=== PATIENT | female | born 1995 | race Hispanic/Latino ===

== ENCOUNTER 2018-05-27 23:19 | Emergency (ER) | payer BC, SELFPAY ==
[2018-05-28 00:27] LABS: #Basophils 0.1 thou/uL (0.0-0.2); #Eosinphils 0.2 thou/uL (0.0-0.7); #Lymphocytes 2.2 thou/uL (1.20-3.40); #Monocytes 0.6 thou/uL (0.11-0.59); #Neutrophils 6.7 thou/uL (1.40-6.50); %Basophils 0.5 % (0.0-1.0); %Lymphocytes 22.4 % (21.0-51.0); %Monocytes 6.5 % (0.0-10.0); %Neutrophils 68.6 % (42.0-75.0); Mean Corpuscular HGB CONC 35.7 g/dL (32.0-36.0); Mean Corpuscular Hemoglobin 31.9 pg (27.0-31.0); Mean Corpuscular Volume 89.2 fL (78.0-98.0); Mean Platelet Volume 6.5 fL (7.4-10.4); Platelet Count 245 thou/uL (130-400); RBC Distribution Width 10.7 % (11.5-14.5); Red Blood Cell (RBC) Count 3.76 mill/uL (4.20-5.40); White Blood Cell (WBC) Count 9.8 thou/uL (4.8-10.8)
--- NOTE | 2018-05-28 08:38 | ULT ---
PRELIMINARY REPORT/[facility]/EMERGENTY AFTER-HOURS PROCEDURE US First Trimester, Transabdominal US , Transvaginal US Duplex Arterial/Venous of the Pelvis, Complete CLINICAL HISTORY: 22 years old, female; Pain and signs and symptoms; Lmp or gestational age (in weeks): 6w5d; Antepartu m complications; Bleeding; complicated by abdominal or pelvic pain; Lower; First trimester; ; Patient HX: Pelvic cramping pain, intermittent bleeding since Sunday (resolved today); Add itional info: Per er visit in [facility] today patient dx: Uti & threatened ab (low heart tone) TECHNIQUE: Real-time transabdominal and transvaginal obstetrical ultrasound of the maternal pelvis and a first t rimester with image documentation. Transvaginal imaging was used for better evaluation of t he fetus and adnexa. Real-time duplex ultrasound scan of the pelvis integrating B-mode two-dimensional vascular structure, Doppler spectral analysis and color flow Doppler imaging. COMPARISON: No relevant prior studies available. FINDINGS: Transabdominal ultrasound did not reveal a gestational sac. Therefore a transvaginal ultrasound was p erformed for further evaluation. Duplex ultrasound scan with color Doppler flow and spectral waveform analysis was also performed for evaluation of pelvic and ovarian blood flow and torsion. Gestation: Single, living intrauterine gestation. heart rate 113 beats per minute. CRL 0.62 cm, 6w3d. Yolk sac visualized. Placenta/amniotic fluid: Cannot be adequately evaluated due to the early gestational age. Uterus/cervix: Unremarkable. No myometrial mass. Right ovary: No acute findings. No mass. Normal blood flow. No evidence of torsion. Left ovary: No acute findings. No mass. Normal blood flow. No evidence of torsion. Free fluid: No free fluid. IMPRESSION: Single viable intrauterine . No acute findings. Thank you for allowing us to participate in the care of your patient. Dictated and Authenticated by: Marty Lao MD 05/28/2018 2:19 AM Central Time ([place] & [place]) OBSTETRIC SONOGRAM TRANSABDOMINAL AND TRANSVAGINAL IMAGING WITH DUPLEX EVALUATION PERFORMED ON AN EMERGENCY BASIS: Date: 05/28/18 Time: 0029 hours HISTORY: Pelvic pain. Bleeding. Early . FINDINGS: Findings agree with the preliminary report by Miguel Ángel. Single, viable intrauterine gestation is confirme d within a retroverted uterus. Measurements correlate with 6 weeks/3 days gestational size. POS: [facility]
== END 2018-05-28 00:53 | disposition home or self-care (01) ==
LOC: SCSER 23:19
DX: O20.0 Threatened abortion (principal); Z3A.01 Less than 8 weeks gestation of pregnancy
CPT/HCPCS: 76856; 84702; 85025; 86900; 86901

== ENCOUNTER 2019-01-09 21:35 | Day surgery (SDC) | payer OTHER ==
[2019-01-09 23:45] VITALS: BP 114/58; TEMP 97.7; BMI 45.5
[2019-01-10] MEDS ORDERED: Acetaminophen 500 MG TAB PO PRN (00:26)
--- NOTE | 2019-01-10 01:25 | PRG ---
DATE OF SERVICE: 01/10/2019 PRIMARY OB: Abebe Peres MD CHIEF COMPLAINT: Abdominal pain. HISTORY OF PRESENT ILLNESS: The patient is a 23-year-old female with an intrauterine at 39 weeks gestation, who is being followed by Dr. Abebe Peres. The patient presented to [facility] ER with concerns of uterine contractions then was transferred here to Labor and Delivery for further evaluation. She reports her contractions began about 2 hours apart, progressed to this evening and has since got to be about 20 minutes apart with an intrauterine at 39 weeks' gestation, who is presenting with abdominal pain. The patient reports she presented to the [facility] ER with contractions about every 30 minutes apart. She reports that began earlier in the evening around 5 o'clock at which time were about 2 hours apart and is now she believes about 20 minutes apart. The patient denies any leakage of fluid. She has had bloody show, but denies other vaginal bleeding. She denies fever or fall. She does report headaches that she has been experiencing since this morning and attributes this to the fact she is not sleeping well. She has not taken any medications for it. She denies nausea or vomiting. Does report some shortness of breath with baby positioning. Denies chest pain. Denies diarrhea. Reports some constipation. Denies new rash, hip problems, knee problems, muscle weakness. The patient reports she was seen yesterday by her doctor, who reports she is about 2.5 cm dilated. PAST MEDICAL HISTORY: Negative. PAST SURGICAL HISTORY: Negative. ALLERGIES: NO KNOWN DRUG ALLERGIES. MEDICATIONS: vitamins. SOCIAL HISTORY: Denies drug, alcohol, or tobacco use. OB LABS: Unavailable. REVIEW OF SYSTEMS: Per HPI. PHYSICAL EXAMINATION: VITAL SIGNS: Blood pressure is 115/57, heart rate of 88, respiratory rate of 20, and temperature 97.7. GENERAL: She appears to be in no acute distress. She is alert, oriented, cooperative, and pleasant to interact with. HEAD: Normocephalic and atraumatic. LUNGS: Clear to auscultation bilaterally. HEART: Has regular rate and rhythm. ABDOMEN: Gravid and soft, nontender. EXTREMITIES: Nontender. Nonedematous. : Exam, per nursing staff, she is 3, 50, and -2 station. heart tracing performed for abdominal pain and . Fetus is noted to have a baseline in the 120s with moderate long-term variability, positive 15 x 15 accelerations, no decelerations. Tocometer has difficulty taking up the contractions but they appear to be having some contractions about every 2 to 3 minutes, so felt about every 20 minutes. ASSESSMENT AND PLAN: The patient is a 23-year-old female with an intrauterine at 39 weeks and 0 days. She is likely in latent labor. She has been given the option to wait couple of hours and then be rechecked. The patient has declined and is asking if she could go home so that she can rest given the hour of the night. The patient does live in [place], which is only about 15 to 20 minutes here from this hospital. We are giving her Tylenol for her headaches, which she will be taking prior to discharging home. The patient has been given term labor precautions. Job ID: [id number]
== END 2019-01-10 00:50 | disposition home or self-care (01) ==
LOC: SCSER 21:35 → SDC/OP 22:53 → L&D/OP 01-10 00:50
PROVIDERS: ATTEND Family Medicine
DX: O47.1 False labor at or after 37 completed weeks of gestation (principal); Z3A.39 39 weeks gestation of pregnancy; Z79.899 Other long term (current) drug therapy
CPT/HCPCS: 99283; 99284

== ENCOUNTER 2019-01-12 10:42 | Inpatient (IN) | payer BC, MEDICAID, OTHER, SELFPAY ==
[2019-01-13] MEDS ORDERED: Lidocaine 2% MPF 10 ML AMP (For Epidural Use) ONE (11:11)
[2019-01-13] MEDS ORDERED: Bupivacaine/Epinephrine 0.25% 30 ML VIAL ONE (11:11)
[2019-01-13] MEDS ORDERED: Lidocaine 1% (PF) 30 ML VIAL SC PRN (23:37)
[2019-01-13] MEDS ORDERED: Butorphanol Tartrate 1 MG/ML VIAL SLOW IVP PRN (23:37)
[2019-01-13] MEDS ORDERED: Methylergonovine 0.2 MG/ML VIAL IM PRN (23:37)
[2019-01-13] MEDS ORDERED: Misoprostol 200 MCG TAB PR PRN (23:37)
[2019-01-13] MEDS ORDERED: Diphenoxylate HCl/Atropine Tablet PO PRN (23:37)
[2019-01-13] MEDS ORDERED: Carboprost 250 MCG/ML AMP IM PRN (23:37)
[2019-01-13] MEDS ORDERED: NS / Oxytocin 40 units/1000ml 1,000 ML IV PRN (23:37)
[2019-01-13] MEDS ORDERED: HYDROcodone/Acetaminophen 5/325 mg Tablet PO PRN (23:37)
[2019-01-13] MEDS ORDERED: Ondansetron PF 4 MG/2 ML Vial IVP PRN (23:37)
[2019-01-13] MEDS ORDERED: NS w/ Oxytocin 10 units 500 ML IV SCH ×2 (23:37)
[2019-01-13] MEDS ORDERED: Ibuprofen 800 MG TAB PO PRN (23:37)
[2019-01-13] MEDS: Lactated Ringer's 1,000 ML IV SCH (23:45)
[2019-01-14 00:09] VITALS: BMI 42.7
[2019-01-14 00:09] LABS: Hemoglobin 11.5 g/dL (12.0-16.0); Mean Corpuscular Hemoglobin 30.8 pg (27.0-31.0); Mean Corpuscular Volume 93.3 fL (78.0-98.0); Mean Platelet Volume 6.8 fL (7.4-10.4); Platelet Count 328 thou/uL (130-400); Red Blood Cell (RBC) Count 3.74 mill/uL (4.20-5.40); White Blood Cell (WBC) Count 8.5 thou/uL (4.8-10.8)
[2019-01-14 00:47] LABS: HBSAg Index 0.23 S/CO (0-0.99); Hep B Surf Ag Non-Reactive S/CO (NonReactive)
[2019-01-14 00:48] LABS: Syphilis Antibody Nonreactive (Nonreactive); Syphilis Antibody Index 0.04 S/CO (<1.00 Non-Reactive)
[2019-01-14] MEDS: Lactated Ringer's 1,000 ML IV SCH ×4 (04:12→12:03)
[2019-01-14] MEDS ORDERED: Fentanyl 4 mcg/Bup 0.1% Cadd 100 ML ONE ×2 (08:20→15:55)
[2019-01-14] MEDS ORDERED: Lidocaine 1.5%/Epinephrine 1:200,000 5 ML AMPUL IJ ONE (08:21)
[2019-01-14] MEDS ORDERED: Promethazine HCl 25 MG/ML VIAL IM PRN ×2 (09:03→19:19)
[2019-01-14] MEDS ORDERED: Lactated Ringer's 500 ML IV PRN (09:03)
[2019-01-14] MEDS ORDERED: ePHEDrine/0.9% NaCl/PF SYRINGE 50 mg/10 ml SLOW IVP PRN (09:03)
[2019-01-14] MEDS ORDERED: Eucerin (Mineral Oil/Petrolatum,White) 30 gm Jar TOP PRN ×2 (09:03→19:19)
[2019-01-14] MEDS ORDERED: Ondansetron PF 4 MG/2 ML Vial IVP PRN ×3 (09:03→21:07)
[2019-01-14] MEDS ORDERED: diphenhydrAMINE 50 MG/ML VIAL IVP PRN ×2 (09:03→19:19)
[2019-01-14] MEDS ORDERED: Naloxone HCl 0.4 mg/ml Vial IVP PRN ×4 (09:03→19:19)
[2019-01-14] MEDS ORDERED: Acetaminophen 325 MG TAB PO PRN (09:03)
[2019-01-14] MEDS ORDERED: Communication Order-Pharmacy FS SCH ×2 (09:15→19:30)
[2019-01-14] MEDS ORDERED: Fentanyl 4 mcg/Bupivacaine 0.1% Cassette 100 ML EPIDURAL SCH (09:15)
[2019-01-14] MEDS ORDERED: diphenhydrAMINE 50 MG/ML VIAL ONE (11:56)
[2019-01-14] MEDS ORDERED: Ketorolac Tromethamine 30 MG/ML VIAL ONE (11:56)
[2019-01-14] MEDS ORDERED: Dexamethasone 20 MG/5 ML VIAL ONE (11:56)
[2019-01-14] MEDS ORDERED: Ondansetron PF 4 MG/2 ML Vial ONE (11:56)
[2019-01-14] MEDS ORDERED: CEFAZOLIN 3 GM in Premix Bag 1 BAG IVPB SCH (17:15)
[2019-01-14] MEDS ORDERED: CEFAZOLIN 3 GM in Sodium Chloride 0.9% 100 ML IVPB SCH (17:30)
[2019-01-14] MEDS: Bicitra 30 ML UDCUP PO SCH ×2 (18:23→18:25)
[2019-01-14] MEDS ORDERED: Meperidine HCl/PF 25 MG/ML VIAL SLOW IVP PRN (19:19)
[2019-01-14] MEDS ORDERED: Promethazine HCl 25 MG SUPP PR PRN (19:19)
[2019-01-14] MEDS ORDERED: HYDROmorphone 2 MG/ML VIAL SLOW IVP PRN (19:19)
[2019-01-14] MEDS ORDERED: Ondansetron HCl/PF 4 MG/2 ML Vial IVP PRN (19:19)
[2019-01-14] MEDS ORDERED: Naloxone HCl 0.4 mg/ml Vial IV PRN (19:19)
[2019-01-14] MEDS ORDERED: L&D-Morphine 4 MG/ML VIAL SLOW IVP PRN (19:19)
[2019-01-14] MEDS ORDERED: Ketorolac Tromethamine 30 MG/ML VIAL IVP PRN (19:19)
[2019-01-14] MEDS ORDERED: Ketorolac Tromethamine 30 MG/ML VIAL IVP SCH (19:30)
[2019-01-14] MEDS ORDERED: Bisacodyl 10 MG SUPP PR PRN (21:07)
[2019-01-14] MEDS ORDERED: diphenhydrAMINE 25 MG CAP PO PRN (21:07)
[2019-01-14] MEDS ORDERED: Lactated Ringer's 1,000 ML IV SCH (21:07)
[2019-01-14] MEDS ORDERED: NS / Oxytocin 40 units/1000ml 1,000 ML IV SCH (21:07)
[2019-01-14] MEDS ORDERED: Meperidine HCl/PF 25 MG/ML VIAL IM PRN (21:07)
[2019-01-14] MEDS ORDERED: Lanolin Ointment 7 GM TUBE TOP PRN (21:07)
[2019-01-14] MEDS: Docusate Calcium (SURFAK) 240 MG CAP PO SCH (22:15)
--- NOTE | 2019-01-15 00:21 | PDOC.PP ---
Post Progress Note Post Day #: POD#1 Subjective: Resting comfortably. No c/o. PO intake tolerated: yes Flatus: no Ambulation: no Vital Signs (12 hours) Temp Pulse Resp BP Pulse Ox 01/14/19 22:15 98.9 F 75 16 125/57 L 99 Weight Weight 120.202 kg - Physical Examination General: NAD Respiratory: non-labored breathing Abdominal: no distention Skin: CS incision dry & intact Psychiatric: normal affect Result Diagrams: 01/13/19 23:53 Additional Labs: Post Labs Blood Type O POSITIVE 01/13/19 23:53 Hep Bs Antigen Non-Reactive S/CO (NonReactive) 01/13/19 23:53 - Assessment/Plan Doing well s/p C/S. Routine postop care.
[2019-01-15] MEDS ORDERED: Sodium Chloride 0.9% 10 ML ONE ×3 (01:18→09:35)
[2019-01-15] MEDS: CEFAZOLIN 2 GM in Premix Bag 1 BAG IVPB SCH ×2 (01:35→09:36)
--- NOTE | 2019-01-15 05:45 | DN ---
DATE OF PROCEDURE: 01/14/2019 RESIDENT SURGEON: Emory Dela Cruz, PGY-2 PROCEDURE: Primary low transverse section. PREOPERATIVE DIAGNOSES: 1. Term intrauterine . 2. Arrest of labor. POSTOPERATIVE DIAGNOSIS: Term intrauterine . ANESTHESIA: Epidural. INDICATIONS: The patient is a 23-year-old G1, P0 female at 39 and 3 weeks gestation, who presented for primary after arrest of labor. DESCRIPTION OF PROCEDURE: After risks, benefits, and alternatives were explained to the patient, she gave informed consent. Preoperative antibiotics included cefazolin 2 g IV. The patient was taken to operating room. The patient already had epidural anesthesia initiated. She was placed in the supine position with a left tilt and prepped and draped in the usual sterile fashion. A Pfannenstiel incision was made with a scalpel and carried down to the level of the fascia, which was sharply nicked. The fascial cut was extended bilaterally with Whelan scissors. The inferior and superior fascial edges were elevated with Shanda clamps, and underlying rectus muscles were sharply and bluntly dissected free. Recti were divided digitally and retracted manually. The peritoneum was entered bluntly and retracted with an Robert O retractor. A bladder flap was created with Metzenbaum scissors. A low transverse score was made with a scalpel and the uterus was entered in the midline with the scalpel. Clear fluid was seen. Hysterotomy was extended manually. was noted to be vertex and easily delivered by fundal pressure. Mouth and nares were bulb suctioned. Cord was clamped and cut and grossly normal male infant was handed to waiting nurse. Cord blood was obtained. Placenta was manually extracted, found to be intact with 3-vessel cord and discarded. Uterus was externalized and the endometrium was curetted with a dry lap. The bladder blade was replaced and the uterus was closed with a running locking 0 Vicryl, followed by a couple of figure of eight stitches with 0 Vicryl to imbricate. Following this, hemostasis was noted. The Seprafilm was applied to the incision site and uterus. The abdomen was irrigated with saline and suctioned free of clots. Uterus was internalized and the hysterotomy was again noted to be hemostatic. The peritoneum was closed with 3-0 Vicryl in a running fashion. The fascia was then closed with a running nonlocking 0 PDS suture. Subcu tissue was irrigated and any bleeders were made hemostatic with Bovie cautery. Subcu tissue was then approximated with 3-0 Vicryl with three interrupted stitches, and the skin was approximated with jelly and pressure dressing was placed. All counts were correct. The patient tolerated the procedure well and was taken to the recovery room in stable condition. QBL was pending at the time of this dictation. COMPLICATIONS: None. SPECIMENS: Cord blood sent to lab for blood type. FINDINGS: Grossly normal with Apgars of 8 and 10 at one and five minutes respectively. Grossly normal placenta with 3-vessel cord discarded. DRAINS: Molina to gravity draining clear urine. Job ID: [id number]
[2019-01-15 06:59] LABS: Hemoglobin 10.1 g/dL (12.0-16.0); Mean Corpuscular HGB CONC 34.1 g/dL (32.0-36.0); Mean Corpuscular Volume 93.9 fL (78.0-98.0); Mean Platelet Volume 6.7 fL (7.4-10.4); Platelet Count 297 thou/uL (130-400); RBC Distribution Width 11.9 % (11.5-14.5); Red Blood Cell (RBC) Count 3.15 mill/uL (4.20-5.40); White Blood Cell (WBC) Count 12.8 thou/uL (4.8-10.8)
[2019-01-15] MEDS: Simethicone Chewable 80 MG TAB PO PRN (07:38)
[2019-01-15] MEDS: Prenatal Vitamin 1 TAB PO SCH (08:51)
[2019-01-15] MEDS: Docusate Calcium (SURFAK) 240 MG CAP PO SCH ×2 (08:51→20:29)
[2019-01-15] MEDS: HYDROcodone/Acetaminophen 5/325 mg Tablet PO PRN ×4 (08:51→20:28)
[2019-01-15] MEDS: Ferrous Sulfate 325 MG TAB PO SCH (08:51)
[2019-01-15] MEDS: Ibuprofen 800 MG TAB PO SCH ×2 (14:13→20:29)
[2019-01-15] MEDS ORDERED: CEFAZOLIN 2 GM in Premix Bag 1 BAG IVPB SCH (18:00)
[2019-01-16] MEDS: Ferrous Sulfate 325 MG TAB PO SCH ×2 (00:34→11:51)
[2019-01-16] MEDS: HYDROcodone/Acetaminophen 5/325 mg Tablet PO PRN ×5 (00:37→21:38)
[2019-01-16] MEDS: Simethicone Chewable 80 MG TAB PO PRN ×3 (01:00→21:39)
--- NOTE | 2019-01-16 01:44 | PDOC.PP ---
Post Progress Note Post Day #: 2 (at 1900 today, will be 48 hrs) Subjective: Doing well. Has prevena in use PO intake tolerated: yes Flatus: yes Ambulation: yes Vital Signs (12 hours) Temp Pulse Resp BP Pulse Ox 01/15/19 20:00 97.7 F 85 18 112/57 L 99 01/15/19 16:50 98.0 F 80 18 110/51 L Weight Weight 265 lb Vitals over last 24 hours reviewed - Physical Examination General: NAD Cardiovascular: no m/r/g, RRR Respiratory: clear to auscultation bilaterally Abdominal: + bowel sounds, lochia, no distention, appropriately TTP Extremities: negative homans (B) Skin: CS incision dry & intact (NOTE: PREVENA wound vac still inplace with original dressing...kept in use. Per op note, jelly in use) Neurological: no gross focal deficits Psychiatric: A&Ox3, normal affect Result Diagrams: 01/15/19 06:35 Additional Labs: Post Labs Blood Type O POSITIVE 01/13/19 23:53 Hep Bs Antigen Non-Reactive S/CO (NonReactive) 01/13/19 23:53 (1) Single delivery by section Code(s): O82 - ENCOUNTER FOR DELIVERY WITHOUT INDICATION Status: Acute - Assessment/Plan POD 2 today. Discussed with her continued observation until POD3 as she has a labor course complicated by CS. Passing flatus. prevena in use. We will: continue in-house observation today (POD2). Prob [facility] home tomorrow Sunday, POD3. Home with prevena wound vac and follow up sunday with provider. Routine care today, POD2.
[2019-01-16] MEDS: Ibuprofen 800 MG TAB PO SCH ×3 (06:42→21:38)
[2019-01-16] MEDS: Docusate Calcium (SURFAK) 240 MG CAP PO SCH ×2 (08:54→21:38)
[2019-01-16] MEDS: Prenatal Vitamin 1 TAB PO SCH (08:54)
[2019-01-17] MEDS: Ferrous Sulfate 325 MG TAB PO SCH ×2 (01:52→08:56)
[2019-01-17] MEDS: Ibuprofen 800 MG TAB PO SCH ×2 (06:08→13:30)
--- NOTE | 2019-01-17 06:18 | PDOC.PP ---
Post Progress Note Post Day #: POD#3 Subjective: Doing well. Tolerating regular diet. PO intake tolerated: yes Flatus: yes Ambulation: yes Vital Signs (12 hours) Temp Pulse Resp BP Pulse Ox 01/16/19 20:25 97.8 F 88 20 128/68 96 Weight Weight 120.202 kg - Physical Examination General: NAD Respiratory: non-labored breathing Abdominal: no distention Skin: CS incision dry & intact Psychiatric: normal affect Result Diagrams: 01/15/19 06:35 Additional Labs: Post Labs Blood Type O POSITIVE 01/13/19 23:53 Hep Bs Antigen Non-Reactive S/CO (NonReactive) 01/13/19 23:53 - Assessment/Plan DC home Precautions RTC next week for wound vac and staple removal
[2019-01-17 08:09] VITALS: BP 100/51; TEMP 98.1
[2019-01-17] MEDS: Prenatal Vitamin 1 TAB PO SCH (08:43)
[2019-01-17] MEDS: Docusate Calcium (SURFAK) 240 MG CAP PO SCH (08:43)
[2019-01-17] MEDS: HYDROcodone/Acetaminophen 5/325 mg Tablet PO PRN ×2 (08:44→13:30)
[2019-01-17] MEDS: Simethicone Chewable 80 MG TAB PO PRN (10:37)
== END 2019-01-17 15:50 | disposition home or self-care (01) | DRG 788 ==
LOC: L&D 01-13 23:09 → 3SW 01-14 23:03
PROVIDERS: ADMIT Family Medicine; ATTEND Family Medicine
PROC: 10D00Z1 Extraction of Products of Conception, Low, Open Approach (ICD-10-PCS; principal; 2019-01-14)
DX: O99.214 Obesity complicating childbirth (principal); O62.1 Secondary uterine inertia; Z3A.39 39 weeks gestation of pregnancy; Z37.0 Single live birth; E66.01 Morbid (severe) obesity due to excess calories
CPT/HCPCS: 36415; 51702; 85027; 86780; 86850; 86900; 86901; 87340; J0690; J1100; J1200; J1885; J2001; J2405; J3490; J7050

== ENCOUNTER 2020-07-14 08:25 | Outpatient (CLI) | payer OTHER ==
--- NOTE | 2020-07-14 09:02 | ULT ---
OB ULTRASOUND: HISTORY: anatomy FINDINGS: A single live intrauterine gestation is seen with measurements corresponding to an estimated gestatio nal age of 21 weeks 5 daysand RODRICK at 11/19/2020. The estimated weight measures 416 g or 15 ounces (39% by Hadlock criteria). biometry: BPD: 5.31 cm, 22 weeks 1 day HC: 19.69 cm, 22 weeks 0 days AC: 15.35 cm, 20 weeks 4 days FL: 3.77 cm, 22 weeks 1 day heart rate: 133bpm Placenta: Anterior Placenta previa: No PINKY: 14.5cm Cervical length: 4.6cm A three-vessel cord, cord insertion, kidneys, urinary bladder, stomach, 4 chambered heart, late ral ventricles, cerebellum, spine, lips/nose, upper and lower extremities are visualized. No definite anomalies are seen. IMPRESSION: Single live intrauterine gestation of 21 weeks 5 daysestimated gestational age and RODRICK at 11/19/2020
== END 2020-07-14 08:26 | disposition home or self-care (01) ==
LOC: BICULT 08:25
PROVIDERS: ATTEND Family Medicine
DX: O09.92 Supervision of high risk pregnancy, unspecified, second trimester (principal); Z3A.21 21 weeks gestation of pregnancy
CPT/HCPCS: 76805

== ENCOUNTER 2020-11-12 08:03 | Outpatient (CLI) | payer OTHER ==
[2020-11-12 21:23] LABS: SARS-CoV-2 MS2 Positive; SARS-CoV-2 N Gene Negative; SARS-CoV-2 S Gene Negative; SARS-CoV-2 by NAA Not Detected (NotDetected); SARS-CoV-2 orf1ab Negative
== END 2020-11-12 08:04 | disposition home or self-care (01) ==
LOC: LABBT 08:03
PROVIDERS: ATTEND Family Medicine
DX: Z01.812 Encounter for preprocedural laboratory examination (principal); Z20.822 Contact with and (suspected) exposure to COVID-19
CPT/HCPCS: 87635; U0003

== ENCOUNTER → 2020-11-19 15:25 | Inpatient (IN) | payer MEDICAID, OTHER, SELFPAY ==
[2020-11-16 10:53] VITALS: BMI 54.8
[2020-11-16 10:55] LABS: Hemoglobin 12.1 g/dL (12.0-16.0); Mean Corpuscular HGB CONC 33.1 g/dL (32.0-36.0); Mean Corpuscular Hemoglobin 30.3 pg (27.0-31.0); Mean Corpuscular Volume 91.7 fL (78.0-98.0); Mean Platelet Volume 7.1 fL (7.4-10.4); Platelet Count 273 thou/uL (130-400)
[2020-11-16 11:39] LABS: HBSAg Index 0.22 S/CO (0-0.99); Hep B Surf Ag Non-Reactive S/CO (NonReactive)
[2020-11-16 11:40] LABS: Syphilis Antibody Nonreactive (Nonreactive); Syphilis Antibody Index 0.03 S/CO (<1.00 Non-Reactive)
[2020-11-16] MEDS: Lactated Ringer's 1,000 ML IV SCH (11:58)
[2020-11-16] MEDS: Tranexamic Acid 1,000 MG in Sodium Chloride 0.9% 100 ML IVPB SCH ×3 (15:35→18:39)
[2020-11-16] MEDS: Carboprost 250 MCG/ML AMP IM SCH ×2 (15:36→15:51)
[2020-11-16] MEDS: metroNIDAZOLE 500 MG in Premix Bag 1 BAG IVPB SCH (18:07)
[2020-11-16] MEDS: Ketorolac Tromethamine 30 MG/ML VIAL IVP SCH ×2 (18:07→23:51)
--- NOTE | 2020-11-16 19:31 | OP ---
DATE OF PROCEDURE: 11/16/2020 RESIDENT SURGEON: Ronda Paul MD. PROCEDURE PERFORMED: Repeat low-transverse section with low vacuum extraction PREOPERATIVE DIAGNOSES: 1. Term intrauterine . 2. Previous section. 3. Obesity. POSTOPERATIVE DIAGNOSES: 1. Term intrauterine , delivered. 2. Previous section. 3. Obesity. ANESTHESIA: Spinal. QBL: 265 mL SPECIMENS: Cord blood obtained for blood type. FINDINGS: Placenta intact with 3-vessel cord noted, discarded. A viable male with Apgars of 8 and 9 at one and five minutes of life respectively. DRAINS: 1. Molina to gravity draining clear urine. 2. Wound VAC over Pfannenstiel incision INDICATIONS: This 25-year-old G2, P1-0-0-1 at 39.2 weeks' gestation, presented to Labor and Delivery for scheduled repeat low-transverse section. PROCEDURE IN DETAIL: After risks, benefits, and alternatives were explained to the patient, she gave informed consent. Preoperative antibiotics included cefazolin 3 g IV. The patient was taken to the operating room where spinal anesthesia was initiated. She was placed in the supine position with a left tilt. She was prepped and draped in the usual sterile fashion. A Pfannenstiel incision was made with a scalpel and carried down to the level of the fascia which was sharply nicked. The fascial cut was extended bilaterally with Whelan scissors. The superior and inferior edges of the fascia were elevated with Shanda clamps and the rectus muscles were sharply and bluntly dissected free. The rectus muscles were divided digitally and retracted manually. The peritoneum was entered bluntly and retracted manually. Bladder blade was placed. A low-transverse uterine incision was made using a scalpel. The uterus was entered bluntly in the midline. An Allis was used for amniotomy and clear fluid was seen. The hysterotomy was extended manually. The infant was noted to be vertex and was difficult to deliver. A vacuum was placed on the infant's head with one pop- off. The was delivered with vacuum assistance and fundal pressure. The was stimulated and suctioned. Cord was clamped and cut. The was taken to the team at the [facility]. The placenta was delivered manually. The uterus was exteriorized, and the endometrium was curetted with a dry lap x1. The edges of the hysterotomy were clamped with ring forceps. The hysterotomy was closed using 1- Monocryl in a running locking fashion. There was some bleeding towards the lateral edges of the hysterotomy. At the left corner of the hysterotomy, a [id number] imbricating stitch was placed using 1-Monocryl. At the right corner of the hysterotomy, 2 [id number] imbricating sutures were placed using 0-Vicryl; and the hysterotomy was noted to be hemostatic. Seprafilm was placed over the hysterotomy in the anterior portion of the uterus. The abdomen was irrigated and suctioned free of clots anteriorly and posteriorly. The uterus was returned to the abdomen. The hysterotomy was again noted to be hemostatic. The peritoneum was closed using 3-0 Vicryl in a running nonlocking fashion. The fascia was closed using 1-PDS in a running nonlocking fashion. The subcutaneous space was closed with 3 interrupted sutures using 3-0 Vicryl. The skin was closed with jelly, and a wound VAC was placed. The patient tolerated the procedure well. All counts were correct. The patient went to recovery for routine care. Postoperative antibiotics of cefazolin were ordered. Job ID: [id number] [facility]
[2020-11-16] MEDS: Docusate Calcium (SURFAK) 240 MG CAP PO SCH (21:35)
[2020-11-16] MEDS: Ferrous Sulfate 325 MG TAB PO SCH (21:35)
[2020-11-16] MEDS: CEFAZOLIN 2 GM in Premix Bag 1 BAG IVPB SCH (21:54)
[2020-11-17] MEDS: metroNIDAZOLE 500 MG in Premix Bag 1 BAG IVPB SCH ×3 (02:20→18:12)
[2020-11-17] MEDS: CEFAZOLIN 2 GM in Premix Bag 1 BAG IVPB SCH ×3 (05:01→20:08)
[2020-11-17] MEDS: Ketorolac Tromethamine 30 MG/ML VIAL IVP SCH (05:26)
[2020-11-17 07:33] LABS: Hemoglobin 9.5 g/dL (12.0-16.0); Mean Corpuscular HGB CONC 33.5 g/dL (32.0-36.0); Mean Corpuscular Hemoglobin 30.8 pg (27.0-31.0); Mean Corpuscular Volume 91.8 fL (78.0-98.0); Mean Platelet Volume 6.8 fL (7.4-10.4); Platelet Count 235 thou/uL (130-400); Red Blood Cell (RBC) Count 3.07 mill/uL (4.20-5.40); White Blood Cell (WBC) Count 9.4 thou/uL (4.8-10.8)
[2020-11-17] MEDS: Docusate Calcium (SURFAK) 240 MG CAP PO SCH ×2 (08:51→21:50)
[2020-11-17] MEDS: Ferrous Sulfate 325 MG TAB PO SCH ×2 (08:51→21:49)
[2020-11-17] MEDS: HYDROcodone/Acetaminophen 5/325 mg Tablet PO PRN ×3 (08:51→18:12)
[2020-11-17] MEDS: Prenatal Vitamin 1 TAB PO SCH (08:51)
[2020-11-17] MEDS: Ibuprofen 800 MG TAB PO SCH ×2 (14:22→21:49)
[2020-11-17] MEDS: Lactated Ringer's 1,000 ML IV SCH (20:07)
[2020-11-17] MEDS: Simethicone Chewable 80 MG TAB PO PRN (21:49)
[2020-11-18] MEDS: HYDROcodone/Acetaminophen 5/325 mg Tablet PO PRN ×5 (01:06→20:16)
[2020-11-18] MEDS: metroNIDAZOLE 500 MG in Premix Bag 1 BAG IVPB SCH ×3 (01:07→17:58)
[2020-11-18] MEDS: CEFAZOLIN 2 GM in Premix Bag 1 BAG IVPB SCH ×3 (04:45→20:18)
[2020-11-18] MEDS: Ibuprofen 800 MG TAB PO SCH ×3 (04:45→21:44)
[2020-11-18] MEDS: Simethicone Chewable 80 MG TAB PO PRN (06:46)
[2020-11-18] MEDS: Ferrous Sulfate 325 MG TAB PO SCH ×2 (09:28→20:20)
[2020-11-18] MEDS: Docusate Calcium (SURFAK) 240 MG CAP PO SCH ×2 (09:28→20:20)
[2020-11-18] MEDS: Prenatal Vitamin 1 TAB PO SCH (09:28)
[2020-11-19] MEDS: metroNIDAZOLE 500 MG in Premix Bag 1 BAG IVPB SCH ×2 (02:26→09:51)
[2020-11-19] MEDS: CEFAZOLIN 2 GM in Premix Bag 1 BAG IVPB SCH ×2 (05:00→12:04)
[2020-11-19] MEDS: Ibuprofen 800 MG TAB PO SCH ×2 (05:08→14:31)
[2020-11-19] MEDS: Docusate Calcium (SURFAK) 240 MG CAP PO SCH (08:03)
[2020-11-19] MEDS: Ferrous Sulfate 325 MG TAB PO SCH (08:03)
[2020-11-19] MEDS: Prenatal Vitamin 1 TAB PO SCH (08:03)
[2020-11-19] MEDS: HYDROcodone/Acetaminophen 5/325 mg Tablet PO PRN ×2 (09:49→14:32)
[2020-11-19 12:08] VITALS: BP 113/59; TEMP 98.6
[~2020-11-19 15:25] MED LIST: Adacel (T-DAP) 0.5 ML SYRINGE IM ONE; Azithromycin 500 MG in Sodium Chloride 0.9% 250 ML 250 ML IVPB ONE; Bicitra 30 ML UDCUP PO PRN; Bisacodyl 10 MG SUPP PR PRN; CEFAZOLIN 3 GM in Sodium Chloride 0.9% 100 ML IVPB SCH; Carboprost 250 MCG/ML AMP ONE; Communication Order-Pharmacy FS SCH; Dexamethasone 4 mg/ml Vial ONE; Diphenoxylate HCl/Atropine Tablet PO PRN; Famotidine/PF 20 mg/2ml Vial SLOW IVP PRN; Fentanyl 100 MCG/2 ML VIAL ONE; HYDROcodone/Acetaminophen 5/325 mg Tablet PO PRN; HYDROmorphone 2 MG/ML VIAL SLOW IVP PRN; Ketorolac Tromethamine 30 MG/ML VIAL IVP PRN; Ketorolac Tromethamine 30 MG/ML VIAL ONE; L&D-Morphine 4 MG/ML VIAL SLOW IVP PRN; Lanolin Ointment 7 GM TUBE TOP PRN; Lidocaine 1.5%/Epinephrine 1:200,000 5 ML AMPUL IJ ONE; Lidocaine 2% MPF 10 ML AMP (For Epidural Use) ONE; MORPHINE 5 MG/10 ML PF VIAL ONE; Meperidine HCl/PF 25 MG/ML VIAL IM PRN; Meperidine HCl/PF 25 MG/ML VIAL SLOW IVP PRN; Methylergonovine 0.2 MG/ML VIAL IM SCH; Methylergonovine 0.2 MG/ML VIAL ONE; Misoprostol 200 MCG TAB ONE; Misoprostol 200 MCG TAB PO SCH; Morphine PF 10 MG/10 ML VIAL ONE; NS / Oxytocin 40 units/1000ml 1,000 ML IV SCH; NS w/ Oxytocin 30 units 500 ML ONE; Naloxone HCl 0.4 mg/ml Vial IV PRN; Naloxone HCl 0.4 mg/ml Vial IVP PRN; Ondansetron HCl/PF 4 MG/2 ML Vial IVP PRN; Ondansetron PF 4 MG/2 ML Vial IVP PRN; Ondansetron PF 4 MG/2 ML Vial ONE; Oxytocin 10 UNITS/ML VIAL ONE; PHENYLEPHRINE-NS 100 MCG/ML 10 ML SYRINGE ONE; Promethazine HCl 25 MG SUPP PR PRN; Promethazine HCl 25 MG/ML VIAL IM PRN; Tranexamic Acid 1,000 MG/10 ML VIAL ONE; diphenhydrAMINE 25 MG CAP PO PRN; diphenhydrAMINE 50 MG/ML VIAL IVP PRN; diphenhydrAMINE 50 MG/ML VIAL ONE; ePHEDrine 50 MG/ML VIAL ONE; hydrALAZINE 20 MG/ML VIAL SLOW IVP PRN
== END | disposition home or self-care (01) | DRG 787 ==
LOC: L&D 01-13 21:17 → UNDOADMIN 01-13 21:17 → L&D-LIB 11-16 09:37 → 3SW 11-16 20:36
PROVIDERS: ADMIT Family Medicine; ATTEND Family Medicine
PROC: 10D00Z1 Extraction of Products of Conception, Low, Open Approach (ICD-10-PCS; principal; 2020-11-16)
DX: O34.219 Maternal care for unspecified type scar from previous cesarean delivery (principal); O87.0 Superficial thrombophlebitis in the puerperium; O72.1 Other immediate postpartum hemorrhage; Z37.0 Single live birth; O99.214 Obesity complicating childbirth; Z3A.39 39 weeks gestation of pregnancy; O69.81X0 Labor and delivery complicated by cord around neck, without compression, not applicable or unspecified; E66.01 Morbid (severe) obesity due to excess calories
CPT/HCPCS: 36415; 51702; 85027; 86780; 86850; 86900; 86901; 87340; J0456; J0690; J1100; J1200; J1885; J2001; J2210; J2270; J2405; J3010; J3490; J7050